=== PATIENT | male | born 1965 | race Caucasian/White ===

== ENCOUNTER 2021-01-12 23:50 | Observation (INO) | payer OTHER ==
[2021-01-13] MEDS ORDERED: hydrALAZINE 20 MG/ML VIAL SLOW IVP PRN (01:16)
[2021-01-13] MEDS ORDERED: Albuterol Sulfate 2.5 mg/3 ml Neb NEB PRN (01:16)
[2021-01-13] MEDS ORDERED: Ondansetron ODT 4 MG TAB PO PRN (01:16)
[2021-01-13] MEDS ORDERED: Ondansetron PF 4 MG/2 ML Vial IVP PRN (01:16)
[2021-01-13] MEDS ORDERED: Acetaminophen 325 MG TAB PO PRN (01:16)
[2021-01-13] MEDS ORDERED: predniSONE 20 MG TAB PO SCH (01:30)
[2021-01-13] MEDS ORDERED: Aspirin Chewable 81 MG TAB PO SCH (01:30)
[2021-01-13] MEDS ORDERED: Metoprolol Tartrate 50 MG TAB PO SCH (01:30)
[2021-01-13] MEDS: Nitroglycerin 2% Ointment 1 INCH/1 GM Packet TOP SCH ×4 (01:53→18:50)
[2021-01-13] MEDS ORDERED: Nicotine 21 MG PATCH TD SCH (02:00)
[2021-01-13] MEDS: Sodium Chloride 0.9% 1,000 ML IV SCH ×2 (05:07→15:45)
[2021-01-13 06:06] LABS: #Monocytes 0.2 10x3/uL (0.0-1.1); #Neutrophils 4.2 10x3/uL (1.5-8.4); %Basophils 0.6 % (0.0-2.0); %Monocytes 3.1 % (0.0-10.0); %Neutrophils 87.1 % (40.0-75.0); Hemoglobin 12.8 g/dL (13.5-17.5); Mean Corpuscular HGB CONC 35.8 g/dL (32.0-36.0); Mean Corpuscular Hemoglobin 33.6 pg (27.0-33.0); Mean Platelet Volume 9.1 fl (7.4-10.4); Platelet Count 124 10x3/uL (150-450); RBC Distribution Width 12.6 % (11.5-14.5); Red Blood Cell (RBC) Count 3.81 10x6/uL (4.32-5.72); White Blood Cell (WBC) Count 4.9 10x3/uL (3.5-10.5)
[2021-01-13 06:21] LABS: Anion Gap 16 mmol/L (10-20); BUN (Urea Nitrogen) 6 mg/dL (8.4-25.7); Calc. Creatinine Clearance 114 mL/min (70-130); Carbon Dioxide 22 mmol/L (22-29); Chloride 90 mmol/L (98-107); Glucose 99 mg/dL (70-105); Magnesium 2.4 mg/dL (1.6-2.6); Potassium 3.4 mmol/L (3.5-5.1); Sodium 125 mmol/L (136-145); Troponin I Less than 0.010 ng/mL (< 0.028)
[2021-01-13] MEDS: Aspirin 81 mg Enteric Coated Tablet PO SCH (08:11)
[2021-01-13] MEDS: Enoxaparin Sodium 40 MG/0.4 ML SYRINGE SC SCH (08:11)
[2021-01-13] MEDS: Metoprolol Tartrate 50 MG TAB PO SCH ×2 (08:11→20:56)
[2021-01-13] MEDS: guaiFENesin ER 600 MG TAB PO SCH ×2 (08:12→20:56)
[2021-01-13] MEDS ORDERED: Amlodipine 5 MG TAB PO SCH (09:00)
[2021-01-13] MEDS ORDERED: Potassium Chloride 20 MEQ TAB PO SCH (16:30)
[2021-01-13] MEDS: Nicotine 21 MG PATCH TD SCH (18:35)
[2021-01-13] MEDS: Doxycycline 100 MG CAP PO SCH (20:57)
[2021-01-14] MEDS: Sodium Chloride 0.9% 1,000 ML IV SCH ×3 (02:28→22:16)
[2021-01-14] MEDS: Nitroglycerin 2% Ointment 1 INCH/1 GM Packet TOP SCH ×3 (03:51→18:50)
[2021-01-14 04:51] LABS: ALT (SGPT) 35 U/L (8-55); AST (SGOT) 32 U/L (5-34); Albumin 3.7 g/dL (3.5-5.0); Alkaline Phosphatase 61 U/L (40-110); Anion Gap 13 mmol/L (10-20); BUN (Urea Nitrogen) 8 mg/dL (8.4-25.7); Bilirubin, Total 2.5 mg/dL (0.2-1.2); Calc. Creatinine Clearance 120 mL/min (70-130); Calcium 8.5 mg/dL (7.8-10.44); Carbon Dioxide 22 mmol/L (22-29); Chloride 98 mmol/L (98-107); Globulin 1.9 g/dL (2.4-3.5); Glucose 93 mg/dL (70-105); Potassium 3.1 mmol/L (3.5-5.1); Protein, Total 5.6 g/dL (6.0-8.3); Sodium 130 mmol/L (136-145)
[2021-01-14 04:57] LABS: #Monocytes 0.6 10x3/uL (0.0-1.1); #Neutrophils 2.6 10x3/uL (1.5-8.4); %Basophils 0.4 % (0.0-2.0); %Eosinophils 0.6 % (0.0-6.0); %Lymphocytes 31.1 % (18.0-47.0); %Monocytes 12.3 % (0.0-10.0); %Neutrophils 55.4 % (40.0-75.0); Hemoglobin 11.1 g/dL (13.5-17.5); Mean Corpuscular HGB CONC 35.4 g/dL (32.0-36.0); Mean Corpuscular Hemoglobin 33.3 pg (27.0-33.0); Mean Corpuscular Volume 94.3 fl (81.2-95.1); Mean Platelet Volume 9.2 fl (7.4-10.4); Platelet Count 127 10x3/uL (150-450); RBC Distribution Width 12.9 % (11.5-14.5); Red Blood Cell (RBC) Count 3.33 10x6/uL (4.32-5.72); White Blood Cell (WBC) Count 4.7 10x3/uL (3.5-10.5)
[2021-01-14 05:16] VITALS: BMI 18.8
[2021-01-14] MEDS ORDERED: Potassium Chloride 20 MEQ TAB PO SCH (07:45)
[2021-01-14] MEDS: guaiFENesin ER 600 MG TAB PO SCH ×2 (08:38→20:14)
[2021-01-14] MEDS: Enoxaparin Sodium 40 MG/0.4 ML SYRINGE SC SCH (08:38)
[2021-01-14] MEDS: predniSONE 20 MG TAB PO SCH (08:39)
[2021-01-14] MEDS: Amlodipine 5 MG TAB PO SCH (08:39)
[2021-01-14] MEDS: Aspirin 81 mg Enteric Coated Tablet PO SCH (08:40)
[2021-01-14] MEDS: Metoprolol Tartrate 50 MG TAB PO SCH ×2 (08:40→20:14)
[2021-01-14] MEDS: Doxycycline 100 MG CAP PO SCH ×2 (08:44→20:14)
[2021-01-14] MEDS: Nicotine 21 MG PATCH TD SCH (18:05)
[2021-01-15] MEDS: Nitroglycerin 2% Ointment 1 INCH/1 GM Packet TOP SCH ×2 (04:21→11:38)
[2021-01-15 08:26] VITALS: BP 177/98; TEMP 97.6
[2021-01-15] MEDS: Enoxaparin Sodium 40 MG/0.4 ML SYRINGE SC SCH ×2 (08:40→09:34)
[2021-01-15] MEDS: Doxycycline 100 MG CAP PO SCH (08:41)
[2021-01-15] MEDS: Aspirin 81 mg Enteric Coated Tablet PO SCH (08:41)
[2021-01-15] MEDS: Metoprolol Tartrate 50 MG TAB PO SCH (08:41)
[2021-01-15] MEDS: guaiFENesin ER 600 MG TAB PO SCH (08:41)
[2021-01-15] MEDS: predniSONE 20 MG TAB PO SCH (08:41)
[2021-01-15] MEDS: Amlodipine 5 MG TAB PO SCH (08:42)
[2021-01-15] MEDS: Sodium Chloride 0.9% 1,000 ML IV SCH (08:43)
[2021-01-15 08:50] LABS: Anion Gap 17 mmol/L (10-20); BUN (Urea Nitrogen) 7 mg/dL (8.4-25.7); Calc. Creatinine Clearance 111 mL/min (70-130); Calcium 9.5 mg/dL (7.8-10.44); Carbon Dioxide 26 mmol/L (22-29); Chloride 89 mmol/L (98-107); Glucose 98 mg/dL (70-105); Sodium 129 mmol/L (136-145)
[2021-01-15] MEDS ORDERED: Lisinopril 10 MG TAB PO SCH (09:00)
[2021-01-15 09:22] LABS: #Monocytes 0.2 10x3/uL (0.0-1.1); #Neutrophils 4.7 10x3/uL (1.5-8.4); %Basophils 0.4 % (0.0-2.0); %Eosinophils 0.4 % (0.0-6.0); %Monocytes 3.2 % (0.0-10.0); %Neutrophils 82.8 % (40.0-75.0); Hemoglobin 12.6 g/dL (13.5-17.5); Mean Corpuscular HGB CONC 35.2 g/dL (32.0-36.0); Mean Corpuscular Hemoglobin 33.9 pg (27.0-33.0); Mean Corpuscular Volume 96.2 fl (81.2-95.1); Mean Platelet Volume 9.2 fl (7.4-10.4); Platelet Count 160 10x3/uL (150-450); RBC Distribution Width 12.6 % (11.5-14.5); Red Blood Cell (RBC) Count 3.72 10x6/uL (4.32-5.72); White Blood Cell (WBC) Count 5.7 10x3/uL (3.5-10.5)
== END 2021-01-15 12:39 | disposition home or self-care (01) ==
LOC: CSHTELE 23:50 → INTOOBSV 23:50 → UNDOADMOB 23:50 → CSHTELE 01-13 01:16
PROVIDERS: ADMIT Family Medicine; ATTEND Internal Medicine
DX: J20.9 Acute bronchitis, unspecified (principal); R06.00 Dyspnea, unspecified; E87.1 Hypo-osmolality and hyponatremia; I10 Essential (primary) hypertension; F17.210 Nicotine dependence, cigarettes, uncomplicated; F10.10 Alcohol abuse, uncomplicated; G60.0 Hereditary motor and sensory neuropathy; Z79.899 Other long term (current) drug therapy; Z90.49 Acquired absence of other specified parts of digestive tract; R94.31 Abnormal electrocardiogram [ECG] [EKG]; E83.42 Hypomagnesemia; D75.89 Other specified diseases of blood and blood-forming organs
CPT/HCPCS: 36415; 80048; 80053; 82607; 82746; 83735; 83935; 84300; 84484; 85025; 87081; 87430; 93005; 93010; 93306; 94760; 96372; 96374; 96375; 96376; G0378; J0360; J1650; J3475; J7050; J7512